=== PATIENT | female | born 1945 | race Caucasian/White ===

== ENCOUNTER 2019-03-05 08:22 | Emergency (ER) | payer MEDICARE, BC | END 2019-03-05 09:31 | disposition home or self-care (01) | LOC: FTE 08:22 | DX: S90.32XA Contusion of left foot, initial encounter (principal); W23.0XXA Caught, crushed, jammed, or pinched between moving objects, initial encounter; Y92.9 Unspecified place or not applicable | CPT/HCPCS: 73630; 73630-LT; 99283-25 ==